=== PATIENT | male | born 1965 | race Caucasian/White ===

== ENCOUNTER → 2018-08-09 14:08 | Outpatient (CLI) | payer OTHER, SELFPAY ==
[2018-08-09 14:08] VITALS: BMI 25.4
--- NOTE | 2018-08-09 14:11 | RAD_ITS ---
STUDY: X-RAY - LEFT HIP REASON FOR EXAM: Male, 53 years old. Pain. TECHNIQUE: AP pelvis and 2 views of the left hip. COMPARISON: None. 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 There is cortical sclerosis with subcortical cyst formation of the acetabulum. There is severe articular joint space narrowing. Normal visualized superior and inferior pubic rami and ischial tuberosities. There is mild degenerative arthrosis of the right hip. RAD/HIP, UNI W/ Pelvis 2-3 Views IMPRESSION: Degenerative changes of the hips as described above. Electronically Signed: Say Fernandes MD at 13:48 EST Tel , Service support ,
== END ==
PROVIDERS: Family Provider Family Medicine; PCP Family Medicine; Referring Provider Physician Assistant; Visit Provider Physician Assistant
DX: M25.552 Pain in left hip (principal)
CPT/HCPCS: 73502